=== PATIENT | male | born 1960 | race Two or more races ===

== ENCOUNTER 2018-06-23 16:21 | Emergency (ER) | payer OTHER ==
[~2018-06-23] VITALS: Ht 167.6 cm; Wt 68.0 kg
--- NOTE | 2018-06-23 16:56 | Emergency Room Report ---
History of Present Illness General Chief Complaint: Multiple Trauma/Fall Source: Patient Present Illness HPI 57-year-old male presents to the emergency department complaining of 5 out of 10 in severity pain to the left forearm in addition to the left knee. Patient reports that he was at work climbing down a ladder when the ladder began to slip and he had to grab a hold of something to prevent from falling. Patient states that one of the rungs of gallbladder slammed down on the top of this for arm in the process. Patient states he is not quite sure how his knee became involved. Patient denies previous injuries to these extremities denies open wounds or bleeding reports that he is able to ambulate and bear weight however he does have pain with these movements. Patient denies feeling of instability in the knee. Denies numbness tingling or loss of sensation or gross motor movements of the extremities, incontinence of bowel or bladder. Denies CP, Palpitations, LOC, AMS, dizziness, Changes in Vision, weakness or a sudden severe headache. He denies midline neck or back pain. Allergies: Coded Allergies: No Known Allergies (Unverified , 06/23/18) Patient History Past Medical History: see triage record Past Surgical History: none Pertinent Family History: none Reviewed Nursing Documentation: PMH: Agreed; PSxH: Agreed Nursing Documentation-PMH Past Medical History: No History, Except For Hx Hypertension: Yes Hx Diabetes: Yes Review of Systems All Other Systems: negative except mentioned in HPI Physical Exam Vital Signs Date Time Temp Pulse Resp B/P (MAP) Pulse Ox O2 Delivery O2 Flow Rate FiO2 06/23/18 16:25 98.7 76 16 160/95 99 Room Air 98.8 Sp02 EP Interpretation: reviewed, normal General Appearance: no apparent distress, alert, GCS 15, non-toxic Head: normocephalic, atraumatic Eyes: bilateral eye normal inspection, bilateral eye PERRL ENT: hearing grossly normal, normal voice Neck: full range of motion Respiratory: lungs clear, normal breath sounds, speaking full sentences Cardiovascular #1: regular rate, rhythm, normal capillary refill Cardiovascular #2: 2+ radial (R), 2+ radial (L) Musculoskeletal: back normal, gait/station normal, normal range of motion, tender - TTP dorsal left forearm distally, and anterior left knee with some tenderness medially, no increased laxity, no clicking, FROM. ambulatory. no obvious deformities. Neurologic: alert, oriented x3, responsive, motor strength/tone normal, sensory intact, speech normal, grossly normal Psychiatric: judgement/insight normal Skin: normal color, no rash, warm/dry, well hydrated Medical Decision Making PA Attestation Dr. Saucedo is my supervising Physician whom patient management has been discussed with. Diagnostic Impression: Primary Impression: Contusion of forearm, left Qualified Codes: S50.12XA - Contusion of left forearm, initial encounter Additional Impressions: Contusion of knee, left Qualified Codes: S80.02XA - Contusion of left knee, initial encounter Muscle strain ER Course 57-year-old male presents to the emergency department complaining of 5 out of 10 in severity pain to the left forearm in addition to the left knee. Patient reports that he was at work climbing down a ladder when the ladder began to slip and he had to grab a hold of something to prevent from falling. Patient states that one of the rungs of gallbladder slammed down on the top of this for arm in the process. Patient states he is not quite sure how his knee became involved. Patient denies previous injuries to these extremities denies open wounds or bleeding reports that he is able to ambulate and bear weight however he does have pain with these movements. Patient denies feeling of instability in the knee. Denies numbness tingling or loss of sensation or gross motor movements of the extremities, incontinence of bowel or bladder. Denies CP, Palpitations, LOC, AMS, dizziness, Changes in Vision, weakness or a sudden severe headache. He denies midline neck or back pain. Ddx considered but are not limited to Fracture, dislocation, contusion, Sprain/ Strain/Spasm. Vital signs: are WNL, pt. is afebrile H&PE are most consistent with musculoskeletal injury will perform imaging to r/ o fractures/dislocations. ORDERS: - X-ray's ED INTERVENTIONS: - [place] PO DISCHARGE: At this time pt. is stable for d/c to home. Will provide printed patient care instructions, and any necessary prescriptions. Care plan and follow up instructions have been discussed with the patient prior to discharge. Other X-Ray Diagnostic Results Other X-Ray Diagnostic Results #1: X-Ray ordered: Left Forearm # of Views/Limited Vs Complete: 2 View Indication: Pain EP Interpretation: Yes PA Xray: Interpretation reviewed, by supervising MD, and agrees with findings. Interpretation: no dislocation, no soft tissue swelling, no fractures Impression: No acute disease Electronically Signed by: Hayde Arvizu PA-C Other X-Ray Diagnostic Results #2: X-Ray ordered: Left knee # of Views/Limited Vs Complete: 3 View Indication: Pain EP Interpretation: Yes PA Xray: Interpretation reviewed, by supervising MD, and agrees with findings. Interpretation: no dislocation, no soft tissue swelling, no fractures Impression: No acute disease Electronically Signed by: Hayde Arvizu PA-C Last Vital Signs Date Time Temp Pulse Resp B/P (MAP) Pulse Ox O2 Delivery O2 Flow Rate FiO2 06/23/18 16:25 98.7 76 16 160/95 99 Room Air 98.8 Disposition: HOME, SELF-CARE Condition: Stable Scripts Methocarbamol* (ROBAXIN-750*) 750 Mg Tablet 750 MG PO QID, #28 TAB 0 Refills Prov: Hayde Arvizu 06/23/18 Ibuprofen* (MOTRIN*) 600 Mg Tablet 600 MG ORAL THREE TIMES A DAY, #30 TAB 0 Refills Prov: Hayde Arvizu 06/23/18 Departure Forms: Return to Work Return to Work Date: Jun 25, 2018 Other Restrictions: light duty x 1 week, as pt. can tolerate. Return to Full Activity: Jul 02, 2018 Patient Instructions: Contusion, [id number], Knee Pain, [id number] Additional Instructions: Take medications as directed. Follow up with a Primary Care Provider in 3-5 days, even if your symptoms have resolved. --Please review list of primary care clinics, if you do not already have a primary care provider Return sooner to ED if new symptoms occur, or current symptoms become worse. Do not drink alcohol, drive, or operate heavy machinery while taking Robaxin ( Muscle Relaxers) as this may cause drowsiness. - Please note that this Emergency Department Report was dictated using [email or web address] associate technology software, occasionally this can lead to erroneous entry secondary to interpretation by the dictation equipment. Hayde Arvizu Jun 23, 2018 16:56
[2018-06-23] MEDS ORDERED: Norco 5mg/325mg tab ORAL ONE (17:00)
[2018-06-23] MEDS ORDERED: ROBAXIN-750750 MG PO (18:01)
[2018-06-23] MEDS ORDERED: IBUPROFEN600 MG ORAL (18:01)
[2018-06-23 18:10] VITALS: BP_SYST 149; BP_SYST 160; BP_DIAS 87; BP_DIAS 95
--- NOTE | 2018-06-24 10:38 | Diagnostic Imaging Report ---
Indication: Knee Pain 3 views of the left knee were obtained. Findings: No acute fracture, malalignment, or joint effusion are identified. Joint space is relatively well-maintained. Popliteal, tibial and femoral artery calcifications are present. Impression: Negative for acute injury. Atherosclerotic disease
--- NOTE | 2018-06-24 10:38 | Diagnostic Imaging Report ---
Indication: Pain Forearm pain Findings: 2 views of the left forearm were obtained. No acute fractures, malalignment, erosions or periostitis are identified. Bone mineralization is within normal limits. Soft tissues are unremarkable. Impression: Negative for acute injury.
== END 2018-06-23 18:10 | disposition home or self-care (01) ==
LOC: EMR 18:10
DX: S50.12XA Contusion of left forearm, initial encounter (principal); S80.02XA Contusion of left knee, initial encounter; W22.8XXA Striking against or struck by other objects, initial encounter; Y92.538 Other ambulatory health services establishments as the place of occurrence of the external cause; Y99.0 Civilian activity done for income or pay; E11.9 Type 2 diabetes mellitus without complications; I10 Essential (primary) hypertension
CPT/HCPCS: 99284